=== PATIENT | female | born 1935 | race Caucasian/White ===

== ENCOUNTER 2017-12-27 21:14 | Inpatient (IN) ==
--- NOTE | 2017-12-27 21:49 | ED ---
HPI General Chief complaint: Dizziness Stated complaint: dizziness Time Seen by Provider: 12/27/17 21:17 Source: patient Mode of arrival: EMS Limitations: no limitations History of Present Illness HPI narrative: The patient is an 82 year old female who presents to the [facility] emergency department with a history of 1 AM today awakening to go to the bathroom and reportedly feeling lightheaded when she sat up. She reports she went to the bathroom and then had diarrhea associated with diaphoresis, nausea, vomiting. She reports that she had 3 other episodes that are similar to this throughout the night. She reports that the vomiting and diarrhea resolved, however she continues to feel lightheaded. She denies seeing any spinning associated with this. She reports that with the first episode she nearly passed out. She denies having any chest pain, chest pressure, or shortness of breath, however she does report having some indigestion. She reports that this is chronic. She reports that she is on Zantac and Tums for this. She denies indigestion being any worse than usual. The patient reported that she was checking her blood pressure earlier today and it was noted to be higher than usual. The patient was brought in by ambulance services and had a blood pressure of 219/110. She reports that she does take blood pressure medication and has been taking it on a regular basis. She reports that she is also on a low-dose aspirin daily. The patient reports a prior history of left-sided weakness. She reports that this is been present since 2013 when she had a blood clot surgically removed at [facility]. The patient additionally is noted to have a tremor involving bilateral upper extremities. She reports that this is chronic and been present for years and runs in her family. On review of systems otherwise, the patient denies having any known recent fevers, cough, congestion, neck pain, abdominal pain, urinary symptoms, new or worsening one-sided weakness, facial droop, difficulty with word finding ability, double vision, or change in vision. Related Data Home Medications Medication Instructions Recorded Confirmed aspirin 81 mg PO DAILY 12/27/17 12/27/17 cyanocobalamin (vitamin B-12) 1,000 mcg PO DAILY 12/27/17 12/27/17 [B-12 DOTS] glipizide 5 mg PO DAILY 12/27/17 12/27/17 lisinopril-hydrochlorothiazide 1 tab PO DAILY 12/27/17 12/27/17 metformin 1,000 mg PO BID 12/27/17 12/27/17 propranolol 40 mg PO DAILY 12/27/17 12/27/17 ranitidine HCl 300 mg PO DAILY 12/27/17 12/27/17 Allergies Allergy/AdvReac Type Severity Reaction Status Date / Time No Known Allergies Allergy Verified 12/27/17 21:23 Review of Systems ROS: all other systems reviewed are negative FORMERLY [facility], [facility] Medical History Medical History Gastritis (Acute) HTN (hypertension) (Acute) Vertigo (Acute) Left-sided weakness (Acute) Tremor (Acute) Surgical History Surgical History Hx of total hysterectomy (Acute) Social History Social History Substance History: No History of Abuse Second Hand Smoke Exposure: No Smoking Status: Never smoker How Often Do You Have a Drink Containing Alcohol: Never Recent Travel in [facility] within the Last 8 Weeks: No Recent Out of Country Travel within the Last 8 Weeks: No Immunization History Tetanus Immunization: <5 Years Exam Const General: cooperative, no acute distress and well developed Nutritional Appearance: well nourished Orientation: alert, awake and oriented x3 HENMT Head: normocephalic and atraumatic Nose: no nasal discharge and no epistaxis Mouth: moist mucous membranes Throat: posterior oropharynx normal and uvula midline Eyes Sclera: normal sclerae Pupils: PERRL Neck Neck: no meningeal signs, trachea midline and no JVD Resp Effort & Inspection: no use of accessory muscles Auscultation: clear to auscultation bilaterally Cardio Rate: regular rate Rhythm: regular rhythm Heart Sounds: no murmurs GI Inspection: non-distended Palpation: soft, no hepatosplenomegaly, no guarding, not rigid and nontender Auscultation: normal bowel sounds Back/Spine/Pelvis Back: no CVA tenderness Skin General: dry skin (warm) Neuro General: alert, awake and oriented x3 Cranial Nerves: CN's II-XI intact bilaterally Speech: speech normal Motor: no movement abnormalities noted and strength abnormal (The patient strength is 5/5 in bilateral upper extremities and the right lower extremity. The patient's left lower extremity is mildly weak compared to the left at 4/5. The patient reports having history of prior weakness in the left lower extremity related to a blood clot in 2013.) Sensory Exam: no sensory deficits noted Extrem General: normal to inspection (2+ pulses in all 4 extremities.), no calf tenderness, no clubbing, no cyanosis and no edema Psych Mood: congruent mood Affect: normal affect Judgment: judgment good Course Initial Documented Vital Signs Temperature 98.5 F 12/27/17 21:18 Pulse Rate 78 12/27/17 21:18 Respiratory Rate 18 12/27/17 21:18 Blood Pressure 226/102 H 12/27/17 21:18 Pulse Oximetry 95 12/27/17 21:18 Last Documented Vital Signs Temperature 97.8 F 12/28/17 01:51 Pulse Rate 65 12/28/17 01:51 Respiratory Rate 14 12/28/17 01:51 Blood Pressure 180/78 H 12/28/17 01:51 Pulse Oximetry 99 12/28/17 01:58 Medical Decision Making MDM Narrative Medical decision making narrative: During the course of the patient's emergency department visit, the patient's history, examination, and differential diagnosis were reviewed with the patient. The patient was placed on a water trainer with oximetry and frequent blood pressure monitoring. The patient had IV access obtained and blood work sent for analysis. A diagnostic evaluation was started regarding the patient's lightheaded sensation. Orthostatic vital signs were done and unremarkable. The patient's diagnostic evaluation is remarkable for a white count of 6.4, hemoglobin 12.3, platelets 266 with 10.9 monocytes, PT 10.1, PTT 24.5, chemistries remarkable for a BUN of 19, creatinine 1.10, glucose 169, CPK 96, troponin I was elevated at 0.13. The patient was given aspirin 324 mg p.o. x1, nitroglycerin 1 inch to the chest wall. Labetalol was administered, 10 mg IV. BNP is elevated at 201, lipase within normal limits, the patient's chest x-ray showed early or mild left infiltrate, CT scan of the brain showed no acute abnormality. The patient denies having any significant cough and her white count is normal, no reports of fever, I doubt that the patient has a pneumonia, this could be related to atelectasis on her chest x-ray. The patient will be monitored. The patient will be admitted to the hospital for near syncope with an elevated troponin, and hypertension. The patient's results were discussed with the patient, including the plan of care. I explained that further testing and/ or monitoring is indicated based on the patient's history, examination, and/ or laboratory findings. Therefore, I recommended admission for additional evaluation. The patient expressed understanding and was agreeable with this plan. The patient was admitted to the hospital in guarded condition and sent to a bed under the care of the [facility] service. Medical Screen Exam Complete: Yes Emergency Medical Condition: Yes Lab Data Result diagrams: 12/28/17 03:43 12/27/17 21:43 Lab Results 12/27/17 12/27/17 12/27/17 Range/Units 21:43 21:43 21:43 WBC 6.4 (4.0-11.0) th/mm3 RBC 4.25 (4.00-5.30) mil/mm3 Hgb 12.3 (11.6-15.3) gm/dL Hct 36.8 (35.0-46.0) % MCV 86.7 (80.0-100.0) fL MCH 29.0 (27.0-34.0) pg MCHC 33.4 (32.0-36.0) % RDW 14.7 (11.6-17.2) % Plt Count 266 (150-450) th/mm3 MPV 9.5 (7.0-11.0) fL Neut % (Auto) 65.8 (16.0-70.0) % Lymph % (Auto) 19.8 (9.0-44.0) % [place] % (Auto) 10.9 H (0.0-8.0) % Eos % (Auto) 2.3 (0.0-4.0) % Baso % (Auto) 1.2 (0.0-2.0) % Neut # (Auto) 4.2 (1.8-7.7) th/mm3 Lymph # (Auto) 1.3 (1.0-4.8) th/mm3 [place] # (Auto) 0.7 (0.0-0.9) th/mm3 Eos # (Auto) 0.2 (0.0-0.4) th/mm3 Baso # (Auto) 0.1 (0.0-0.2) th/mm3 WBC Differential . Differential Comment Auto diff final PT (9.8-11.6) sec INR Ratio APTT (23.4-31.7) sec Sodium (136-145) meq/L Potassium (3.5-5.1) meq/L Chloride (98-107) meq/L Carbon Dioxide (21.0-32.0) meq/L Anion Gap (5-15) meq/L BUN (7-18) mg/dL Creatinine (0.50-1.00) mg/dL Estimated GFR (>89) mL/min Random Glucose (74-106) mg/dL Calcium (8.5-10.1) mg/dL Magnesium (1.5-2.5) mg/dL Total Bilirubin (0.2-1.0) mg/dL AST (15-37) U/L ALT (10-53) U/L Alkaline Phosphatase (45-117) U/L Total Creatine Kinase (26-192) U/L Troponin I (0.02-0.05) ng/mL B-Natriuretic Peptide 201 H (0-100) pg/mL Total Protein (6.4-8.2) g/dL Albumin (3.4-5.0) g/dL Lipase 144 (73-393) U/L Urine Color (Yellw/Straw) Urine Clarity (Clear) Urine pH (5.0-8.5) Ur Specific [place] (1.002-1.035) Urine Protein (Neg-Trace) mg/dL Urine Glucose (UA) (Negative) mg/dL Urine Ketones (Negative) mg/dL Urine Occult Blood (Negative) Urine Nitrate (Negative) Urine Bilirubin (Negative) Urine Urobilinogen (Less than 2) mg/dL Ur Leukocyte Esterase (Negative) Urine RBC (0-3) /hpf Urine WBC (0-5) /hpf Ur Squamous Epith Cells (0-5) /hpf Urine Bacteria (None) /hpf Urine Mucus (Occasional) /lpf Micro UA Comment Ur Microscopic Review Urine Culture Comments 12/27/17 12/27/17 12/27/17 Range/Units 21:43 21:43 22:52 WBC (4.0-11.0) th/mm3 RBC (4.00-5.30) mil/mm3 Hgb (11.6-15.3) gm/dL Hct (35.0-46.0) % MCV (80.0-100.0) fL MCH (27.0-34.0) pg MCHC (32.0-36.0) % RDW (11.6-17.2) % Plt Count (150-450) th/mm3 MPV (7.0-11.0) fL Neut % (Auto) (16.0-70.0) % Lymph % (Auto) (9.0-44.0) % [place] % (Auto) (0.0-8.0) % Eos % (Auto) (0.0-4.0) % Baso % (Auto) (0.0-2.0) % Neut # (Auto) (1.8-7.7) th/mm3 Lymph # (Auto) (1.0-4.8) th/mm3 [place] # (Auto) (0.0-0.9) th/mm3 Eos # (Auto) (0.0-0.4) th/mm3 Baso # (Auto) (0.0-0.2) th/mm3 WBC Differential Differential Comment PT 10.1 (9.8-11.6) sec INR 1.0 Ratio APTT 24.5 (23.4-31.7) sec Sodium 139 (136-145) meq/L Potassium 3.5 (3.5-5.1) meq/L Chloride 101 (98-107) meq/L Carbon Dioxide 29.9 (21.0-32.0) meq/L Anion Gap 8 (5-15) meq/L BUN 19 H (7-18) mg/dL Creatinine 1.10 H (0.50-1.00) mg/dL Estimated GFR 48 L (>89) mL/min Random Glucose 169 H (74-106) mg/dL Calcium 9.0 (8.5-10.1) mg/dL Magnesium 1.5 (1.5-2.5) mg/dL Total Bilirubin 0.4 (0.2-1.0) mg/dL AST 16 (15-37) U/L ALT 17 (10-53) U/L Alkaline Phosphatase 87 (45-117) U/L Total Creatine Kinase 96 (26-192) U/L Troponin I 0.13 H (0.02-0.05) ng/mL B-Natriuretic Peptide (0-100) pg/mL Total Protein 7.6 (6.4-8.2) g/dL Albumin 3.8 (3.4-5.0) g/dL Lipase (73-393) U/L Urine Color Yellow (Yellw/Straw) Urine Clarity Clear (Clear) Urine pH 6.0 (5.0-8.5) Ur Specific [place] 1.011 (1.002-1.035) Urine Protein Negative (Neg-Trace) mg/dL Urine Glucose (UA) Negative (Negative) mg/dL Urine Ketones Negative (Negative) mg/dL Urine Occult Blood Negative (Negative) Urine Nitrate Negative (Negative) Urine Bilirubin Negative (Negative) Urine Urobilinogen Less than 2 (Less than 2) mg/dL Ur Leukocyte Esterase Moderate H (Negative) Urine RBC 1 (0-3) /hpf Urine WBC 11 H (0-5) /hpf Ur Squamous Epith Cells 3 (0-5) /hpf Urine Bacteria Rare H (None) /hpf Urine Mucus Few H (Occasional) /lpf Micro UA Comment Culture not ind Ur Microscopic Review Not Reportable Urine Culture Comments Culture not ind 12/28/17 Range/Units 03:43 WBC 6.0 (4.0-11.0) th/mm3 RBC 3.77 L (4.00-5.30) mil/mm3 Hgb 11.0 L (11.6-15.3) gm/dL Hct 32.7 L (35.0-46.0) % MCV 86.8 (80.0-100.0) fL MCH 29.2 (27.0-34.0) pg MCHC 33.6 (32.0-36.0) % RDW 14.3 (11.6-17.2) % Plt Count 240 (150-450) th/mm3 MPV 9.4 (7.0-11.0) fL Neut % (Auto) 63.1 (16.0-70.0) % Lymph % (Auto) 24.7 (9.0-44.0) % [place] % (Auto) 9.3 H (0.0-8.0) % Eos % (Auto) 1.6 (0.0-4.0) % Baso % (Auto) 1.3 (0.0-2.0) % Neut # (Auto) 3.8 (1.8-7.7) th/mm3 Lymph # (Auto) 1.5 (1.0-4.8) th/mm3 [place] # (Auto) 0.6 (0.0-0.9) th/mm3 Eos # (Auto) 0.1 (0.0-0.4) th/mm3 Baso # (Auto) 0.1 (0.0-0.2) th/mm3 WBC Differential . Differential Comment Auto diff final PT (9.8-11.6) sec INR Ratio APTT (23.4-31.7) sec Sodium (136-145) meq/L Potassium (3.5-5.1) meq/L Chloride (98-107) meq/L Carbon Dioxide (21.0-32.0) meq/L Anion Gap (5-15) meq/L BUN (7-18) mg/dL Creatinine (0.50-1.00) mg/dL Estimated GFR (>89) mL/min Random Glucose (74-106) mg/dL Calcium (8.5-10.1) mg/dL Magnesium (1.5-2.5) mg/dL Total Bilirubin (0.2-1.0) mg/dL AST (15-37) U/L ALT (10-53) U/L Alkaline Phosphatase (45-117) U/L Total Creatine Kinase (26-192) U/L Troponin I (0.02-0.05) ng/mL B-Natriuretic Peptide (0-100) pg/mL Total Protein (6.4-8.2) g/dL Albumin (3.4-5.0) g/dL Lipase (73-393) U/L Urine Color (Yellw/Straw) Urine Clarity (Clear) Urine pH (5.0-8.5) Ur Specific [place] (1.002-1.035) Urine Protein (Neg-Trace) mg/dL Urine Glucose (UA) (Negative) mg/dL Urine Ketones (Negative) mg/dL Urine Occult Blood (Negative) Urine Nitrate (Negative) Urine Bilirubin (Negative) Urine Urobilinogen (Less than 2) mg/dL Ur Leukocyte Esterase (Negative) Urine RBC (0-3) /hpf Urine WBC (0-5) /hpf Ur Squamous Epith Cells (0-5) /hpf Urine Bacteria (None) /hpf Urine Mucus (Occasional) /lpf Micro UA Comment Ur Microscopic Review Urine Culture Comments Imaging Data Radiologist's impression: Head CT 12/27/17 21:40 CONCLUSION: Negative noncontrast head CT. . Chest X-Ray 12/27/17 21:41 CONCLUSION: Early or mild left base pneumonia suspected. ECG Data Attestation: I personally reviewed and interpreted this ECG as follows: Interpretation: The patient had a EKG done on arrival. The patient's EKG shows a sinus rhythm heart rate of 80, seconds. No acute ST segment elevation is noted. Discharge Plan Discharge Disposition Patient Disposition: 30 Still Patient Discharge Details Diagnosis: Near syncope, Elevated troponin, Hypertension Physicians Team ED Provider: Bibiana Hamilton Primary Care Provider: Nathanael Gonzalez Attending Provider: Hamilton Manzanares Discharge Interventions Interventions: ED Discharge Assessment Last Done: 12/28/17 01:25 Status ED Status: Left Department Discharge Information Discharge Date/Time: 12/28/17 01:26
[2017-12-27 22:00] LABS: Baso # (Auto) 0.1 th/mm3 (0.0-0.2); Baso % (Auto) 1.2 % (0.0-2.0); Eos # (Auto) 0.2 th/mm3 (0.0-0.4); Eos % (Auto) 2.3 % (0.0-4.0); Hematocrit 36.8 % (35.0-46.0); Hemoglobin 12.3 gm/dL (11.6-15.3); Lymph # (Auto) 1.3 th/mm3 (1.0-4.8); Lymph % (Auto) 19.8 % (9.0-44.0); Mean Corpuscular HGB Conc 33.4 % (32.0-36.0); Mean Corpuscular Volume 86.7 fL (80.0-100.0); Mean Platelet Volume 9.5 fL (7.0-11.0); Mono # (Auto) 0.7 th/mm3 (0.0-0.9); Mono % (Auto) 10.9 % (0.0-8.0); Neut # (Auto) 4.2 th/mm3 (1.8-7.7); Neut % (Auto) 65.8 % (16.0-70.0); Platelet Count 266 th/mm3 (150-450); Red Blood Count 4.25 mil/mm3 (4.00-5.30); Red Cell Distribution Width 14.7 % (11.6-17.2); White Blood Count 6.4 th/mm3 (4.0-11.0)
[2017-12-27 22:05] LABS: Activated Partial Thrombo Time 24.5 sec (23.4-31.7); Prothrombin Time 10.1 sec (9.8-11.6)
[2017-12-27 22:22] LABS: Albumin 3.8 g/dL (3.4-5.0); Anion Gap 8 meq/L (5-15); Aspartate Aminotransferase 16 U/L (15-37); Blood Urea Nitrogen 19 mg/dL (7-18); Carbon Dioxide 29.9 meq/L (21.0-32.0); Chloride 101 meq/L (98-107); Glomerular Filtration Rate 48 mL/min (>89); Glucose,Random 169 mg/dL (74-106); Magnesium 1.5 mg/dL (1.5-2.5); Potassium 3.5 meq/L (3.5-5.1); Sodium 139 meq/L (136-145)
[2017-12-27 22:23] LABS: Alanine Aminotransferase 17 U/L (10-53)
[2017-12-27 22:26] LABS: Alkaline Phosphatase 87 U/L (45-117); Total Protein 7.6 g/dL (6.4-8.2); Troponin I 0.13 ng/mL (0.02-0.05)
--- NOTE | 2017-12-27 22:26 | XR ---
EXAM DATE: 12/27/2017 10:17 PM EST AGE/SEX: 82 years / Female INDICATIONS: Lightheaded and dizziness. CLINICAL DATA: This is the patient's initial encounter. Patient reports that signs and symptoms have been present for 1 day and indicates a pain score of 0/10. MEDICAL/SURGICAL HISTORY: Hypertension. None. COMPARISON: No prior exams available for comparison. FINDINGS: Very mild patchy infiltrate seen in the left mid and lower lung. No dense consolidation. No pleural e ffusion or pneumothorax. Heart size within normal limits. CONCLUSION: Early or mild left base pneumonia suspected. Electronically signed by: Waldemar Carreon MD 12/27/2017 10:25 PM EST
--- NOTE | 2017-12-27 22:42 | CT ---
EXAM DATE: 12/27/2017 10:34 PM EST AGE/SEX: 82 years / Female INDICATIONS: Dizziness and lightheaded. CLINICAL DATA: This is the patient's initial encounter. Patient reports that signs and symptoms have been present for 1 day and indicates a pain score of 0/10. MEDICAL/SURGICAL HISTORY: Hypertension. Hysterectomy. RADIATION DOSE: 35.14 CTDI (mGy) COMPARISON: No prior exams available for comparison. TECHNIQUE: CT of the head without contrast. Using automated exposure control and adjustment of the mA and/or kV according to patient size, radiation dose was kept as low as reasonably achievable to ob tain optimal diagnostic quality images. DICOM format image data is available electronically for revi ew and comparison. FINDINGS: Cerebrum: The ventricles are normal for age. No evidence of midline shift, mass lesion, hemorrhage or acute infarction. No extraaxial fluid collections are seen. Posterior Fossa: The cerebellum and brainstem are intact. The 4th ventricle is midline. The cerebe llopontine angle is unremarkable. Extracranial: The visualized portion of the orbits is intact. Skull: The calvaria is intact. No evidence of skull fracture. CONCLUSION: Negative noncontrast head CT. . Electronically signed by: Waldemar Carreon MD 12/27/2017 10:40 PM EST
[2017-12-27 22:50] LABS: Creatine Kinase 96 U/L (26-192)
[2017-12-27] MEDS ORDERED: Labetalol HCl Inj 100 MG/20 ML Vial IV.PUSH ONE (23:14)
[2017-12-27 23:27] LABS: Bacteria,Urine Rare /hpf; Bilirubin,Urine Negative (Negative); Clarity,Urine Clear (Clear); Color,Urine Yellow (Yellw/Straw); Glucose,Urine (UA) Negative (Negative); Leukocyte Esterase,Urine Moderate (Negative); Mucus,Urine Few /lpf (Occasional); Nitrite,Urine Negative (Negative); Specific Gravity,Urine 1.011 (1.002-1.035); Squamous Epithelial Cell,Urine 3 /hpf (0-5)
[2017-12-27] MEDS ORDERED: Bisacodyl 10 MG Supp RECTAL PRN (23:31)
[2017-12-27] MEDS ORDERED: Dextrose 50% in Water 50 ML Vial IV.PUSH PRN (23:37)
[2017-12-28] MEDS: Sod Chloride 0.9% Inj 1,000 ML IV.CONT SCH ×2 (00:16→18:51)
[2017-12-28] MEDS ORDERED: Pantoprazole Inj 40 MG Vial IV.PUSH ONE (03:41)
[2017-12-28 04:36] LABS: Baso # (Auto) 0.1 th/mm3 (0.0-0.2); Baso % (Auto) 1.3 % (0.0-2.0); Eos # (Auto) 0.1 th/mm3 (0.0-0.4); Eos % (Auto) 1.6 % (0.0-4.0); Hematocrit 32.7 % (35.0-46.0); Lymph # (Auto) 1.5 th/mm3 (1.0-4.8); Lymph % (Auto) 24.7 % (9.0-44.0); Mean Corpuscular HGB Conc 33.6 % (32.0-36.0); Mean Corpuscular Hemoglobin 29.2 pg (27.0-34.0); Mean Corpuscular Volume 86.8 fL (80.0-100.0); Mean Platelet Volume 9.4 fL (7.0-11.0); Mono # (Auto) 0.6 th/mm3 (0.0-0.9); Mono % (Auto) 9.3 % (0.0-8.0); Neut # (Auto) 3.8 th/mm3 (1.8-7.7); Neut % (Auto) 63.1 % (16.0-70.0); Platelet Count 240 th/mm3 (150-450); Red Blood Count 3.77 mil/mm3 (4.00-5.30); Red Cell Distribution Width 14.3 % (11.6-17.2)
[2017-12-28 04:58] LABS: Alanine Aminotransferase 15 U/L (10-53); Albumin 3.3 g/dL (3.4-5.0); Anion Gap 10 meq/L (5-15); Aspartate Aminotransferase 14 U/L (15-37); Blood Urea Nitrogen 17 mg/dL (7-18); Calcium 8.7 mg/dL (8.5-10.1); Carbon Dioxide 28.6 meq/L (21.0-32.0); Chloride 104 meq/L (98-107); Glomerular Filtration Rate 54 mL/min (>89); Glucose,Random 150 mg/dL (74-106); Potassium 3.3 meq/L (3.5-5.1); Sodium 143 meq/L (136-145)
[2017-12-28 05:02] LABS: Alkaline Phosphatase 73 U/L (45-117); Total Protein 6.5 g/dL (6.4-8.2); Troponin I 0.14 ng/mL (0.02-0.05)
--- NOTE | 2017-12-28 05:37 | P.HPIM ---
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 She reports nausea, vomiting of clear emesis, nonbloody diarrhea, sweating over the past day. She also reports generalized weakness upon standing, worse on the left than on the right (note that patient reports some baseline left sided weakness). She denies any recent changes in medications. Inpatient Certification: I certify that the inpatient services were ordered in accordance with Medicare regulations governing the order. This includes certification that hospital inpatient services are reasonable and necessary and in the case of services not specified as inpatient-only under 42 CFR 419.22(n), that they are appropriately provided as inpatient services in accordance to with the 2-midnight benchmark under 43 CFR 412.3(e) Estimated Total Length of Stay (Days): 2 Plans for Post Hospital Care: Not yet determined Review of Systems All other systems reviewed negative except as stated in HPI PMFSH - History History Provided By: Patient - Medical History Medical History: Medical History (Last Reviewed 12/28/17 @ 05:30 by Hamilton Manzanares MD) Gastritis HTN (hypertension) Vertigo Left-sided weakness Tremor - Surgical History Surgical History: Surgical History (Last Reviewed 12/28/17 @ 05:30 by Hamilton Manzanares MD) Hx of total hysterectomy - Family History Family History: Family History (Last Updated 12/28/17 @ 05:33 by Hamilton Manzanares MD) Father Colon cancer Mother Stroke - Tobacco History Second Hand Smoke Exposure: No Smoking Status: Never smoker - Alcohol History How Often Do You Have a Drink Containing Alcohol: Never - Substance Use History Substance History: No History of Abuse - Travel History Recent Travel in the [place] Within the Last 8 Weeks: No Recent Travel Out of the Country Within the Last 8 Weeks: No - Immunization History Tetanus Immunization: <5 Years Medications and Allergies Active Medications: Active Medications Al Hydroxide/Mg Hydroxide (Milk Of Magnannika Liq) 30 ml PO Q12H PRN PRN Reason: Mild Constipation Aspirin (Aspirin Chew) 81 mg PO DAILY POPEYE Bisacodyl (Dulcolax Supp) 10 mg RECTAL DAILY PRN PRN Reason: SEVERE CONSITIPATION Calcium Carbonate (Tums Chew) 500 mg CHEW Q2H PRN PRN Reason: REFLUX Last Admin: 12/28/17 04:00 Dose: 500 mg Dextrose (D50w Vial) 50 ml IV.PUSH UNSCH PRN PRN Reason: PER HYPOGLYCEMIA PROTOCOL Enalaprilat (Vasotec Inj) 1.25 mg IV.PUSH Q6H PRN PRN Reason: SBP>180, DBP>110 Last Admin: 12/28/17 00:45 Dose: 1.25 mg Famotidine (Pepcid) 40 mg PO DAILY POPEYE Glucagon (Glucagon Inj) 1 mg OTHER PRN PRN PRN Reason: for Hypoglycemia Protocol Sodium Chloride (Ns Inj) 1,000 mls @ 50 mls/hr IV.CONT .Q20H POPEYE Last Admin: 12/28/17 00:16 Dose: 50 mls/hr Insulin Aspart (Novolog Insulin Correctional Sugar Inj) 0 unit SQ ACHS POPEYE; Protocol Lactulose (Lactulose Liq) 30 ml PO DAILY PRN PRN Reason: SEVERE CONSITIPATION Nitroglycerin (Nitro-Bid 2% Oint) 1 inch TOPICAL Q6HR POPEYE Propranolol HCl (Inderal) 40 mg PO DAILY [facility] Sennosides (Senokot) 17.2 mg PO Q12H PRN PRN Reason: Moderate Constipation Sodium Chloride (Ns Flush) 2 ml IV.FLUSH UNSCH PRN PRN Reason: FLUSH AFTER USING IV ACCESS Allergies Allergy/AdvReac Type Severity Reaction Status Date / Time No Known Allergies Allergy Verified 12/27/17 21:23 Home Medications Medication Instructions Recorded Confirmed Type aspirin 81 mg PO DAILY 12/27/17 12/27/17 History cyanocobalamin (vitamin B-12) 1,000 mcg PO DAILY 12/27/17 12/27/17 History [B-12 DOTS] glipizide 5 mg PO DAILY 12/27/17 12/27/17 History lisinopril-hydrochlorothiazide 1 tab PO DAILY 12/27/17 12/27/17 History metformin 1,000 mg PO BID 12/27/17 12/27/17 History propranolol 40 mg PO DAILY 12/27/17 12/27/17 History ranitidine HCl 300 mg PO DAILY 12/27/17 12/27/17 History Exam Vital signs: Vital Signs 12/27/17 21:18 12/27/17 21:48 12/28/17 00:00 Temperature 98.5 F Pulse Rate 78 87 69 Respiratory Rate 18 18 Blood Pressure 226/102 H 188/96 H Pulse Oximetry 95 96 98 12/28/17 00:44 12/28/17 01:51 12/28/17 01:58 Temperature 97.8 F Pulse Rate 70 65 Respiratory Rate 18 14 Blood Pressure 150/68 H 180/78 H Pulse Oximetry 98 99 99 Intake & Output 12/27/17 12/27/17 12/28/17 06:59 18:59 06:59 Weight 74.843 kg Narrative: GENERAL: Patient lying in bed. Appears comfortable. Alert and oriented x3. SKIN: Warm and dry. HEAD: Atraumatic. Normocephalic. EYES: Pupils equal and round. No scleral icterus. No injection or drainage. ENT: No nasal bleeding or discharge. Mucous membranes pink and moist. NECK: Trachea midline. No JVD. Patient has right-sided carotid bruit. CARDIOVASCULAR: Regular rate and rhythm. RESPIRATORY: No accessory muscle use. Clear to auscultation. Breath sounds equal bilaterally. GASTROINTESTINAL: Abdomen soft, non-tender, nondistended. Hepatic and splenic margins not palpable. MUSCULOSKELETAL: Extremities without clubbing, cyanosis, or edema. No obvious deformities. NEUROLOGICAL: Awake and alert. No obvious cranial nerve deficits. Motor grossly within normal limits. Normal speech. Patient does have very slight weakness on the left compared to the right, 4 out of 5 strength on the left, 5 out of 5 on the right. Slight tremor on the left upper extremity. Which patient reports is at baseline. PSYCHIATRIC: Appropriate mood and affect; insight and judgment normal. Results - Labs CBC & Chem 7: 12/28/17 03:43 12/28/17 03:43 Labs: Short CBC 12/27/17 12/28/17 Range/Units 21:43 03:43 WBC 6.4 6.0 (4.0-11.0) th/mm3 Hgb 12.3 11.0 L (11.6-15.3) gm/dL Hct 36.8 32.7 L (35.0-46.0) % Plt Count 266 240 (150-450) th/mm3 [facility] 12/27/17 12/28/17 21:43 03:43 Sodium 139 143 Potassium 3.5 3.3 L Chloride 101 104 Carbon Dioxide 29.9 28.6 BUN 19 H 17 Creatinine 1.10 H 0.99 Calcium 9.0 8.7 Cardiac Enzymes 12/27/17 12/28/17 Range/Units 21:43 03:43 Total Creatine Kinase 96 (26-192) U/L Troponin I 0.13 H 0.14 H (0.02-0.05) ng/mL Liver Function 12/27/17 12/28/17 Range/Units 21:43 03:43 Total Bilirubin 0.4 0.4 (0.2-1.0) mg/dL AST 16 14 L (15-37) U/L ALT 17 15 (10-53) U/L Alkaline Phosphatase 87 73 (45-117) U/L Albumin 3.8 3.3 L (3.4-5.0) g/dL Urine 12/27/17 Range/Units 22:52 Urine Color Yellow (Yellw/Straw) Urine Clarity Clear (Clear) Urine pH 6.0 (5.0-8.5) Ur Specific Buchanan 1.011 (1.002-1.035) Urine Protein Negative (Neg-Trace) mg/dL Urine Glucose (UA) Negative (Negative) mg/dL - Imaging Impressions Head CT 12/27/17 21:40 CONCLUSION: Negative noncontrast head CT. . Chest X-Ray 12/27/17 21:41 CONCLUSION: Early or mild left base pneumonia suspected. Caprini VTE Risk Assessment Caprini VTE Risk Assessment: Moderate/High Risk (score >= 2) Caprini Risk Assessment Model: Point Value = 1 Point Value = 2 Point Value = 3 Point Value = 5 Age 41-60 Minor surgery BMI > 25 kg/m2 Swollen legs Varicose veins or History of unexplained or recurrent spontaneous Oral contraceptives or hormone replacement Sepsis (< 1 month) Serious lung disease, including pneumonia (< 1 month) Abnormal pulmonary function Acute myocardial infarction Congestive heart failure (< 1 month) History of inflammatory bowel disease Medical patient at bed rest Age 61-74 Arthroscopic surgery Major open surgery (> 45 min) Laparoscopic surgery (> 45 min) Malignancy Confined to bed (> 72 hours) Immobilizing plaster cast Central venous access Age >= 75 History of VTE Family history of VTE Factor V Leiden Prothrombin [id number] Lupus anticoagulant Anticardiolipin antibodies Elevated serum homocysteine Heparin-induced thrombocytopenia Other congenital or acquired thrombophilia Stroke (< 1 month) Elective arthroplasty Hip, pelvis, or leg fracture Acute spinal cord injury (< 1 month) Prophylaxis Regimen: Total Risk Factor Score Risk Level Prophylaxis Regimen 0-1 Low Early ambulation 2 Moderate Order ONE of the following: *Sequential Compression Device (SCD) *Heparin 5000 units SQ BID 3-4 Higher Order ONE of the following medications: *Heparin 5000 units SQ TID *Enoxaparin/Lovenox 40 mg SQ daily (WT < 150 kg, CrCl > 30 mL/min) *Enoxaparin/Lovenox 30 mg SQ daily (WT < 150 kg, CrCl > 10-29 mL/min) *Enoxaparin/Lovenox 30 mg SQ BID (WT < 150 kg, CrCl > 30 mL/min) AND/OR *Sequential Compression Device (SCD) 5 or more Highest Order ONE of the following medications: *Heparin 5000 units SQ TID (Preferred with Epidurals) *Enoxaparin/Lovenox 40 mg SQ daily (WT < 150 kg, CrCl > 30 mL/min) *Enoxaparin/Lovenox 30 mg SQ daily (WT < 150 kg, CrCl > 10-29 mL/min) *Enoxaparin/Lovenox 30 mg SQ BID (WT < 150 kg, CrCl > 30 mL/min) AND *Sequential Compression Device (SCD) Assessment and Plan - Plan //Possible non-ST elevation AK With atypical complaints of nausea and vomiting, troponin elevation up to 0.14. EKG with no acute changes. Chest pain-free. Cardiology consulted. Continue to monitor EKGs and troponins. //Nausea, vomiting -Much improved currently. Multifactorial. Could be secondary to lightheadedness versus atypical chest pain versus gastritis. Continue on PPI, antiemetics. //Lightheadedness //Left-sided weakness. Acute on chronic //Right sided bruit on exam CT brain with no acute findings Follow-up carotid ultrasound. Neurology consulted. Permissive hypertension for now. //Accelerated hypertension. Systolic blood pressuressecondary to lightheadedness with left carotid bruit will allow permissive hypertension for now. //Diabetes mellitus. Chronic. Insulin sliding scale and diabetic diet when diet restarted. //History of gastric ulcer. //GERD Chronic. IV PPI. Discussed Condition With: Patient, nurse, ED physician.
[2017-12-28] MEDS ORDERED: Sodium Chloride 0.9% 2 ML Flush PRN IV.FLUSH (05:58)
[2017-12-28] MEDS ORDERED: Potassium Chlor 20 mEq Premix 20 MEQ/100 ML PIGGYBACK IV.SIG ONE (06:00)
[2017-12-28] MEDS: Famotidine 20 MG Tablet PO SCH (08:00)
[2017-12-28] MEDS: Propranolol 40 MG Tablet PO SCH (08:00)
[2017-12-28] MEDS: Insulin NovoLOG Aspart Correctional Sugar Inj SQ SCH ×4 (08:01→21:57)
[2017-12-28] MEDS: Sodium Chloride 0.9% 2 ML Flush BID IV.FLUSH SCH ×2 (08:01→21:57)
--- NOTE | 2017-12-28 09:06 | US ---
EXAM DATE: 12/28/2017 9:01 AM EST AGE/SEX: 82 years / Female INDICATIONS: Syncope. CLINICAL DATA: This is the patient's initial encounter. Patient reports that signs and symptoms have been present for 1 day and indicates a pain score of 0/10. MEDICAL/SURGICAL HISTORY: Hypertension. Gastritis. Left sided weakness. Tremors. Vertigo. Hyst erectomy. COMPARISON: No prior exams available for comparison. VELOCITY PARAMETERS: ICA/CCA Ratio: Right 0.7 , Left 1.2 ICA: Right 81.6 cm/sec, Left 98.3 cm/sec CCA: Right 109.3 cm/sec, Left 79.1 cm/sec ECA: Right 90.3 cm/sec, Left 109.7 cm/sec Vertebral: Right 69.9 cm/sec antegrade, Left 48.2 cm/sec antegrade FINDINGS: Right Carotid: Mild arteriosclerotic plaque is visualized.The waveforms are within normal limits. Left Carotid: Mild arteriosclerotic plaque is visualized. The waveforms are within normal limits. Other: None. CONCLUSION: No hemodynamically significant stenosis in either carotid artery Electronically signed by: Franck Suarez MD 12/28/2017 9:05 AM EST
--- NOTE | 2017-12-28 17:12 | ECHRPT ---
Indication: syncope CONCLUSIONS Normal left ventricular size. Wall thickness is normal. The left ventricular systolic function is normal with an estimated ejection fraction in the range of 60-65%. Tdohe-yh-ahqe mitral valve regurgitation. There is mild tricuspid valve regurgitation. The estimated pulmonary arterial pressure is 38 mmHg. BP: / HR: Rhythm: MEASUREMENTS (Male / Female) Normal Values Technical Quality: 2D ECHO LV Diastolic Diameter PLAX 4.5 cm 4.2 - 5.9 / 3.9 - 5.3 cm LV Systolic Diameter PLAX 3.5 cm IVS Diastolic Thickness 1.1 cm 0.6 - 1.0 / 0.6 - 0.9 cm LVPW Diastolic Thickness 1.2 cm 0.6 - 1.0 / 0.6 - 0.9 cm LV Relative Wall Thickness 0.5 RV Internal Dim ED PLAX 3.5 cm LVOT Diameter 1.6 cm Aortic Root Diameter 2.6 cm LA Systolic Diameter LX 3.2 cm 3.0 - 4.0 / 2.7 - 3.8 cm LV Ejection Fraction MOD 4C 64.4 % LV Ejection Fraction 4C AL 67.0 % M-MODE Aortic Root Diameter MM 2.4 cm LA Systolic Diameter MM 3.9 cm LA Ao Ratio MM 1.6 AV Cusp Separation MM 1.9 cm DOPPLER AV Peak Velocity 185.0 cm/s AV Peak Gradient 13.7 mmHg LVOT Peak Velocity 120.0 cm/s LVOT Peak Gradient 5.8 mmHg AV Area Cont Eq pk 1.3 cm Mitral E Point Velocity 92.8 cm/s Mitral A Point Velocity 97.2 cm/s Mitral E to A Ratio 1.0 LV E' Lateral Velocity 7.7 cm/s Mitral E to LV E' Lateral Ratio 12.1 LV E' Septal Velocity 9.4 cm/s Mitral E to LV E' Septal Ratio 9.9 TR Peak Velocity 262.0 cm/s TR Peak Gradient 27.5 mmHg Right Atrial Pressure 10.0 mmHg Pulmonary Artery Systolic Pressu 37.5 mmHg Right Ventricular Systolic Press 37.5 mmHg PV Peak Velocity 103.0 cm/s PV Peak Gradient 4.2 mmHg FINDINGS LEFT VENTRICLE Normal left ventricular size. Wall thickness is normal. The left ventricular systolic function is normal with an estimated ejection fraction in the range of 60-65%. RIGHT VENTRICLE Normal right ventricular size and systolic function. LEFT ATRIUM The left atrial size is normal. RIGHT ATRIUM The right atrial size is normal. ATRIAL SEPTUM Normal atrial septal thickness without atrial level shunting by limited color doppler interrogation. AORTA The aortic root and proximal ascending aorta are normal in size on limited imaging. MITRAL VALVE Pralu-pe-bjmp mitral valve regurgitation. AORTIC VALVE Trileaflet aortic valve. No aortic valve stenosis or regurgitation. TRICUSPID VALVE There is mild tricuspid valve regurgitation. The estimated pulmonary arterial pressure is 38 mmHg. PULMONARY VALVE No pulmonary valve regurgitation or stenosis. VESSELS The inferior vena cava is normal in size. PERICARDIUM No pericardial effusion. Houston Ervin MD, FACC, [facility] [place] (Electronically Signed) Final Date:28 December 2017 17:12
--- NOTE | 2017-12-28 18:08 | MB ---
cc: Daniel Ferrera MD, PhD DATE: 12/28/2017 REASON FOR CONSULTATION: Weakness. HISTORY OF PRESENT ILLNESS: Ms. Ruth she is an 82-year-old woman who developed diarrhea and diaphoresis yesterday. She was very dizzy as well as lightheaded. Every time she stood up, she felt as though she would passed out. She had a sense of vertigo as well, today doing much better. She denies vertigo. Denies any weakness, but feels that her strength is improving. She had no focal deficits. PAST MEDICAL HISTORY: States she has some type of "blood clot to the spine" in the cervical area requiring surgery, which left her with left-sided weakness from which she did recover, peptic ulcer disease, hypertension, GERD, tremor. MEDICATIONS: 1. Aspirin. 2. Dulcolax. 3. Pepcid. 4. Lactulose. 5. Protonix. 6. Inderal 40 mg daily. 7. Senokot. NEUROLOGIC EXAMINATION: VITAL SIGNS: Blood pressure is 174/79, pulse 74, respirations 18, temperature 98 degrees. NEUROLOGIC: Higher cortical functions are normal. Cranial nerves intact. Motor exam: She had 5/5 strength of all groups in the upper and lower extremities. There is no drift. Fine motor skills normal. Reflexes are symmetric. IMAGING STUDIES: CT scan of the brain is normal. Carotid ultrasound: No significant carotid stenosis. LABORATORY DATA: White count is 6400, hemoglobin 12.3, hematocrit 36%, platelet count 266,000. PT 10, INR 1, aPTT 24.5. Sodium is 139, potassium 3.5, chloride 101, CO2 of 29.9, BUN is 19, creatinine 1.1, GFR 48, glucose 169, AST 16, ALT 17. IMPRESSION: Presyncope, probably related to dehydration and orthostatic hypotension. RECOMMENDATIONS: Check orthostatic blood pressure. If possible obtain an MRI of the brain as well, rule out remote chance of stroke. Daniel Ferrera MD, PhD DAVIAN/dayna , 04:44 PM , 04:53 PM
[2017-12-28] MEDS ORDERED: Gadobutrol PF 7.5 MMOL/7.5 ML Vial (for RAD) IV.SIG ONE (18:31)
--- NOTE | 2017-12-28 18:38 | MR ---
EXAM DATE: 12/28/2017 6:29 PM EST AGE/SEX: 82 years / Female INDICATIONS: Left sided weakness. CLINICAL DATA: This is the patient's initial encounter. Patient reports that signs and symptoms have been present for 2 days and indicates a pain score of 0/10. MEDICAL/SURGICAL HISTORY: Diabetes mellitus type II. Hypertension. Hysterectomy. Femur surgery . COMPARISON: [facility] [place], [place] HEAD W/O CONTRAST, 12/27/2017. . TECHNIQUE: Multiplanar, multisequence examination of the brain was performed without and with 7.5 ml Gadavist (gadobutrol) contrast as a single exam dose. FINDINGS: Cerebrum: The ventricles are normal for age. No evidence of midline shift, mass lesion, hemorrhage or acute infarction. No extraaxial fluid collections are seen. The pituitary gland and suprasellar cistern are normal in configuration. White Matter: Extremely mild scattered chronic FLAIR signal abnormality in the white matter of both cerebral hemispheres. Posterior Fossa: The cerebellum and brainstem are intact. The 4th ventricle is midline. The cerebel lopontine angle is unremarkable. The cerebellar tonsils are normal in position. Diffusion Imaging: No focal areas of restricted diffusion are seen. No evidence of acute infarction . Extracranial: The visualized portions of the orbits and paranasal sinuses are unremarkable. Post Contrast: No abnormal areas of parenchymal or dural enhancement. No evidence of blood-brain ba rrier breakdown. CONCLUSION: Noncontrast MRI of the brain is within normal limits for a patient this age. No bleed, i nfarct or other acute abnormality. Electronically signed by: Waldemar Carreon MD 12/28/2017 6:37 PM EST
--- NOTE | 2017-12-28 21:14 | ECG ---
Date Performed: 12/27/2017 Time Performed: 21:21:16 PTAGE: 82 years EKG: Sinus rhythm NORMAL ECG NO PREVIOUS TRACING DOCTOR: Amado Phillips Interpretating Date/Time 12/28/2017 21:12:44
--- NOTE | 2017-12-29 01:38 | MB ---
cc: Pofririo Dias DO DATE: 12/28/2017 REASON FOR CONSULTATION: Elevated troponin, hypertensive urgency. HISTORY OF PRESENT ILLNESS: Tamia Ruth is a pleasant 82-year-old female who presented to [facility] Emergency Room due to left-sided weakness upon standing. She states that she started noticing that she was not feeling well and every time she stood up, she was having trouble with balance. She felt like the left side of her arm and leg were weak. She denies an current chest pain or shortness of breath. During her workup, she was found to have a minimally elevated troponin, which is overall flat. On arrival, she was noted to have a blood pressure of 226/102. PAST MEDICAL HISTORY: 1. Gastritis. 2. Hypertension. 3. Vertigo. 4. Chronic left-sided weakness. 5. Tremor. PAST SURGICAL HISTORY: Total hysterectomy. ALLERGIES: NO KNOWN DRUG ALLERGIES. MEDICATIONS: 1. Ranitidine 300 mg daily. 2. Aspirin 81 mg daily. 3. Propranolol 40 mg daily. 4. Metformin 1000 mg b.i.d. 5. Lisinopril/hydrochlorothiazide 12/04-02/24 daily. 6. Glipizide 5 mg daily. FAMILY HISTORY: Denies premature coronary artery disease or sudden cardiac within the family. SOCIAL HISTORY: Denies tobacco, alcohol or drug abuse. REVIEW OF SYSTEMS: Fourteen systems were reviewed including osteopathic. Pertinent positives and negatives above, otherwise negative. PHYSICAL EXAMINATION: VITAL SIGNS: Temperature 97.9, heart rate 68, blood pressure 186/86, respirations 16, pulse oximetry 97% on room air. GENERAL: The patient appears well, in no acute distress. Alert, awake and oriented x3. HEENT: Extraocular muscles intact. Mucous membranes moist. NECK: Supple. No JVD at 45 degrees. No carotid bruits heard bilaterally. Carotid upstroke is brisk in nature. HEART: Regular rate and rhythm. Positive first and second heart sounds with a 1/6 holosystolic murmur noted at the apex. LUNGS: Clear to auscultation bilaterally. No wheezes, rales or rhonchi. ABDOMEN: Soft, nontender, nondistended. No organomegaly noted. EXTREMITIES: Show no clubbing, cyanosis or edema. Femoral and distal pulses are intact bilaterally. NEUROLOGIC: No focal deficits. SKIN: Warm, dry and intact. OSTEOPATHIC: No kyphoscoliosis, lordosis or paraspinal tender points. LABORATORY DATA: Hemoglobin 11.2, hematocrit 32.7, platelets 240. Potassium 3.3, BUN 17, creatinine 0.99, troponin flat at 0.14. Electrocardiogram (12/27/2017 at 2121 hours): Sinus rhythm. No acute ST-T wave changes. IMPRESSION: 1. Minimally elevated troponin. 2. Hypertensive urgency with a blood pressure of 226/102 on arrival. 3. History of hypertension. 4. History of left-sided weakness. 5. Tremor. RECOMMENDATIONS: 1. Ms. Ruth presented with hypertensive urgency with a blood pressure of 226/102. 2. She will need further blood pressure control and we will plan on adding Norvasc at this time. 3. We will check a 2-D echo to look at her overall left ventricular function, cardiac structure and possible valvulopathies. 4. She does have a minimally elevated troponin, but this appears overall flat in nature. She has no signs or symptoms of acute coronary syndrome at this time. 5. We did discuss consideration of ischemic evaluation. For now, she would like to hold off on this at all costs if possible. We will plan on discharge, having her followup with me in the office and at that time she will further consider this. 6. Her dizziness and weakness upon standing is most likely orthostatic hypotension and we will continue to follow from that standpoint to determine if any other causes. 8. Further recommendations will be made based on the hospital course. Thank you for allowing me to see Tamia Ruth. If there are any questions, please do not hesitate to call. DO ANGEL Sen/chucky/marcelino , 12:00 AM , 12:10 AM
[2017-12-29] MEDS ORDERED: Pantoprazole Inj 40 MG Vial IV.PUSH SCH (06:00)
[2017-12-29] MEDS ORDERED: amLODIPine 5 MG Tablet PO SCH (09:00)
[2017-12-29] MEDS: Insulin NovoLOG Aspart Correctional Sugar Inj SQ SCH ×4 (09:20→21:20)
[2017-12-29] MEDS: Propranolol 40 MG Tablet PO SCH (09:21)
[2017-12-29] MEDS: Famotidine 20 MG Tablet PO SCH (09:21)
[2017-12-29] MEDS: Sodium Chloride 0.9% 2 ML Flush BID IV.FLUSH SCH ×2 (09:22→21:20)
[2017-12-29 09:29] LABS: Calcium 9.2 mg/dL (8.5-10.1); Potassium 3.5 meq/L (3.5-5.1)
[2017-12-29] MEDS: Acetaminophen 325 MG Tablet PO PRN ×2 (10:26→15:06)
--- NOTE | 2017-12-29 11:12 | P.PN ---
Subjective Interval history: Follow-up on patient with lightheadedness. Patient seen and examined. Patient complains of mild headache at this time. She denies any vision changes, dizziness or lightheadedness. She states she has gone to and from the bed to the bathroom multiple times without any difficulties. She is concerned about her elevated blood pressure. She denies any nausea, vomiting or abdominal pain. She denies any chest pain or shortness of breath. She denies any urinary difficulties, constipation or diarrhea. She does admit to having an anxious personality and she wonders if that is contributing to her elevated blood pressure. She also is upset because it will be the 8 yr anniversary of her 's on the . Physical Exam Vital signs: Vital Signs 12/28/17 12:00 12/28/17 16:00 12/28/17 19:50 Temperature 97.9 F 97.1 F L Pulse Rate 64 65 78 Respiratory Rate 16 16 Blood Pressure 186/86 H 201/92 H Pulse Oximetry 97 95 12/28/17 20:00 12/29/17 00:00 12/29/17 00:05 Temperature 98.6 F 97.9 F Pulse Rate 80 72 66 Respiratory Rate 18 18 Blood Pressure 187/91 H 169/77 H Pulse Oximetry 94 L 95 12/29/17 04:00 12/29/17 08:00 12/29/17 09:00 Temperature 98.0 F 98.4 F Pulse Rate 75 Respiratory Rate 18 Blood Pressure 185/79 H Pulse Oximetry 95 Intake & Output 12/28/17 12/29/17 12/29/17 18:59 06:59 18:59 Intake Total 1580 / 1580 800 / 800 Balance 1580 / 1580 800 / 800 Weight 72.2 kg Intake: IV 1100 / 1100 800 / 800 NS Inj 1,000 ML @ 50 mls/hr IV. 1000 / 1000 800 / 800 CONT .Q20H [facility] Rx#:[id number] KCl 20 mEq Premix Inj 20 meq In 100 / 100 100 ml @ 50 mls/hr IV.SIG ONCE ONE Rx#:[id number] Oral 480 / 480 Other: # Voids 4 4 2 Date of Last Bowel Movement 12/28/17 # Bowel Movements 1 Narrative: GENERAL: WDWN female patient, INAD. Awake and alert. Appears comfortable. SKIN: Warm and dry. HEENT: Atraumatic. Normocephalic. Pupils equal and round. No scleral icterus. No injection or drainage. No nasal bleeding or discharge. Mucous membranes pink and moist. NECK: Trachea midline. Patient has right-sided carotid bruit. CARDIOVASCULAR: Regular rate and rhythm. RESPIRATORY: No accessory muscle use. Clear to auscultation. Breath sounds equal bilaterally. GASTROINTESTINAL: Abdomen soft, non-tender, nondistended. +BS. MUSCULOSKELETAL: Extremities without clubbing, cyanosis, or edema. No obvious deformities. NEUROLOGICAL: Awake and alert. No obvious cranial nerve deficits. Motor grossly within normal limits. Normal speech. Patient does have very slight weakness on the left compared to the right, 4 out of 5 strength on the left, 5 out of 5 on the right. Slight tremor on the left upper extremity. Which patient reports is at baseline. PSYCHIATRIC: Appropriate mood and affect; insight and judgment normal. Results - Labs CBC & Chem 7: 12/28/17 03:43 12/29/17 07:59 Laboratory Results - last 24 hr 12/28/17 12/28/17 12/28/17 11:37 17:51 21:55 Sodium Potassium Chloride Carbon Dioxide Anion Gap BUN Creatinine Estimated GFR POC Glucose 149 H 183 H 182 H Random Glucose Calcium 12/29/17 12/29/17 07:22 07:59 Sodium 142 Potassium 3.5 Chloride 104 Carbon Dioxide 28.0 Anion Gap 10 BUN 14 Creatinine 1.05 H Estimated GFR 50 L POC Glucose 160 H Random Glucose 154 H Calcium 9.2 - Imaging Impressions Head MRI 12/28/17 00:00 CONCLUSION: Noncontrast MRI of the brain is within normal limits for a patient this age. No bleed, infarct or other acute abnormality. Assessment and Plan - Plan 82-year-old female with diabetes, GERD, reported gastric ulcer, hypertension, reported history of stroke with residual left-sided weakness who presents with onset of lightheadedness upon standing up: Presyncope, likely related to dehydration and/or orthostatic hypotension Hx of previous CVA with residual left sided weakness CT head neg Carotid US without hemodynamically significant stenosis Brain MRI unremarkable Echo with EF 60-65% orthostatics neg -Neurology following, appreciate assistance -continuous cardiac monitoring -ASA daily -check B12 and TSH -fall precautions -PT/OT eval/recs Elevated troponins EKG with no acute changes Patient has no chest pain complaints Cardiology following, appreciate assistance. Trops flat overall. Plan for followup as outpatient, possible ischemic evaluation in the future. Hypertensive urgency BP 226/102 -Started on Norvasc 5mg but BP still up. DW Dr. Dias, will increase Norvasc to 10mg daily and add Lisinopril 10mg daily -continue on Inderal -monitor BP closely Nausea, vomiting, resolved at present suspect multifactorial. Could be secondary to lightheadedness versus atypical chest pain versus gastritis. -Continue on PPI, antiemetics. Diabetes mellitus, chronic -diabetic diet -continue on accuchek and ISS -resume on home medication Metformin but at lower dose History of gastric ulcer, on Pepcid at home GERD hx of esophageal stricture s/p dilation, reports difficulty with food occasionally getting stuck -last EGD approx 8yrs ago. Recommended she follow up with GI as outpatient for possible repeat EGD in the near future -change from IV to po Protonix Headache, suspect multifactorial 2/2 NTG and elevated BP -d/c NTG -Tylenol prn DVT prophylaxis -bilateral SCD/DIANA hose Code Status: Full Discussed Condition With: patient, nursing staff, Dr. Gonzalez, Dr. Dias Discharge Planning: Possible discharge tomorrow pending cardiology and neurology clearance
[2017-12-29] MEDS ORDERED: amLODIPine 5 MG Tablet PO ONE (12:50)
[2017-12-29] MEDS: Lisinopril 10 MG Tablet PO SCH (13:30)
--- NOTE | 2017-12-29 19:32 | P.PNNEU ---
Subjective Subjective Comments: no new neurologic sx. Denies light headedness or dizzyness Active Medications: Active Medications Acetaminophen (Tylenol) 650 mg PO Q4H PRN PRN Reason: HEADACHE Last Admin: 12/29/17 15:06 Dose: 650 mg Al Hydroxide/Mg Hydroxide (Milk Of Magnesia Liq) 30 ml PO Q12H PRN PRN Reason: Mild Constipation Amlodipine Besylate (Norvasc) 10 mg PO DAILY [facility] Aspirin (Aspirin Chew) 81 mg PO DAILY [facility] Last Admin: 12/29/17 09:20 Dose: 81 mg Bisacodyl (Dulcolax Supp) 10 mg RECTAL DAILY PRN PRN Reason: SEVERE CONSITIPATION Calcium Carbonate (Tums Chew) 500 mg CHEW Q2H PRN PRN Reason: REFLUX Last Admin: 12/28/17 04:00 Dose: 500 mg Dextrose (D50w Vial) 50 ml IV.PUSH UNSCH PRN PRN Reason: PER HYPOGLYCEMIA PROTOCOL Enalaprilat (Vasotec Inj) 1.25 mg IV.PUSH Q6H PRN PRN Reason: SBP>200, DBP>100 Last Admin: 12/28/17 15:48 Dose: 1.25 mg Famotidine (Pepcid) 40 mg PO DAILY [facility] Last Admin: 12/29/17 09:21 Dose: 40 mg Glucagon (Glucagon Inj) 1 mg OTHER PRN PRN PRN Reason: for Hypoglycemia Protocol Insulin Aspart (Novolog Insulin Correctional Sugar Inj) 0 unit SQ [facility]; Protocol Last Admin: 12/29/17 17:19 Dose: Not Given Lactulose (Lactulose Liq) 30 ml PO DAILY PRN PRN Reason: SEVERE CONSITIPATION Lisinopril (Prinivil) 10 mg PO DAILY [facility] Last Admin: 12/29/17 13:30 Dose: 10 mg Metformin HCl (Glucophage) 500 mg PO BID@0900,1800 [facility] Last Admin: 12/29/17 18:04 Dose: 500 mg Pantoprazole Sodium (Protonix) 40 mg PO DAILY [facility] Propranolol HCl (Inderal) 40 mg PO DAILY [facility] Last Admin: 12/29/17 09:21 Dose: 40 mg Sennosides (Senokot) 17.2 mg PO Q12H PRN PRN Reason: Moderate Constipation Sodium Chloride (Ns Flush) 2 ml IV.FLUSH BID [facility] Last Admin: 12/29/17 09:22 Dose: Not Given Sodium Chloride (Ns Flush) 2 ml IV.FLUSH PRN PRN PRN Reason: FLUSH AFTER USING IV ACCESS Allergies/Adverse Reactions: Allergies Allergy/AdvReac Type Severity Reaction Status Date / Time No Known Allergies Allergy Verified 12/27/17 21:23 Physical Exam Vital signs: Vital Signs 12/28/17 19:50 12/28/17 20:00 12/29/17 00:00 Temperature 98.6 F 97.9 F Pulse Rate 78 80 72 Respiratory Rate 18 18 Blood Pressure 187/91 H 169/77 H Pulse Oximetry 94 L 95 12/29/17 00:05 12/29/17 04:00 12/29/17 08:00 Temperature 98.0 F 98.4 F Pulse Rate 66 Respiratory Rate 18 Blood Pressure 185/79 H Pulse Oximetry 95 12/29/17 09:00 12/29/17 12:00 12/29/17 16:00 Temperature 98.5 F 98.3 F Pulse Rate 75 73 70 Respiratory Rate 20 20 Blood Pressure 173/78 H 170/80 H Pulse Oximetry 95 96 Intake & Output 12/29/17 12/29/17 12/30/17 06:59 18:59 06:59 Intake Total 800 / 800 Balance 800 / 800 Weight 72.2 kg Intake: IV 800 / 800 NS Inj 1,000 ML @ 50 mls/hr IV. 800 / 800 CONT .Q20H [facility] Rx#:[id number] Other: # Voids 4 1 - Routine Neurological Exam alert, oriented, speech normal CN 2-12 normal MOTOR 5/5 BUE and BLE Objective Radiology Results: MRI brain normal Laboratory Results - last 24 hr 12/28/17 12/29/17 12/29/17 21:55 07:22 07:59 Sodium 142 Potassium 3.5 Chloride 104 Carbon Dioxide 28.0 Anion Gap 10 BUN 14 Creatinine 1.05 H Estimated GFR 50 L POC Glucose 182 H 160 H Random Glucose 154 H Calcium 9.2 Vitamin B12 TSH 12/29/17 12/29/17 12/29/17 07:59 07:59 11:54 Sodium Potassium Chloride Carbon Dioxide Anion Gap BUN Creatinine Estimated GFR POC Glucose 263 H Random Glucose Calcium Vitamin B12 1058 H TSH 3.670 12/29/17 16:56 Sodium Potassium Chloride Carbon Dioxide Anion Gap BUN Creatinine Estimated GFR POC Glucose 127 H Random Glucose Calcium Vitamin B12 TSH Review/Management - Diagnosis (1) Near syncope Code(s): R55 - Syncope and collapse Status: Acute Current Visit: Yes - Review/Management Plan: near syncope most likely related to diarrhea/dehydration. No evidence for cva on mri
--- NOTE | 2017-12-30 01:26 | P.PNCA ---
Subjective Interval history: No events overnight Feels well Blood pressure still elevated Medications and Allergies Active Medications: Active Medications Acetaminophen (Tylenol) 650 mg PO Q4H PRN PRN Reason: HEADACHE Last Admin: 12/29/17 15:06 Dose: 650 mg Al Hydroxide/Mg Hydroxide (Milk Of Magnesia Liq) 30 ml PO Q12H PRN PRN Reason: Mild Constipation Amlodipine Besylate (Norvasc) 10 mg PO DAILY [facility] Aspirin (Aspirin Chew) 81 mg PO DAILY [facility] Last Admin: 12/29/17 09:20 Dose: 81 mg Bisacodyl (Dulcolax Supp) 10 mg RECTAL DAILY PRN PRN Reason: SEVERE CONSITIPATION Calcium Carbonate (Tums Chew) 500 mg CHEW Q2H PRN PRN Reason: REFLUX Last Admin: 12/28/17 04:00 Dose: 500 mg Dextrose (D50w Vial) 50 ml IV.PUSH UNSCH PRN PRN Reason: PER HYPOGLYCEMIA PROTOCOL Enalaprilat (Vasotec Inj) 1.25 mg IV.PUSH Q6H PRN PRN Reason: SBP>200, DBP>100 Last Admin: 12/28/17 15:48 Dose: 1.25 mg Famotidine (Pepcid) 40 mg PO DAILY [facility] Last Admin: 12/29/17 09:21 Dose: 40 mg Glucagon (Glucagon Inj) 1 mg OTHER PRN PRN PRN Reason: for Hypoglycemia Protocol Insulin Aspart (Novolog Insulin Correctional Sugar Inj) 0 unit SQ [facility]; Protocol Last Admin: 12/29/17 21:20 Dose: 100 unit Lactulose (Lactulose Liq) 30 ml PO DAILY PRN PRN Reason: SEVERE CONSITIPATION Lisinopril (Prinivil) 10 mg PO DAILY [facility] Last Admin: 12/29/17 13:30 Dose: 10 mg Metformin HCl (Glucophage) 500 mg PO BID@0900,1800 [facility] Last Admin: 12/29/17 18:04 Dose: 500 mg Pantoprazole Sodium (Protonix) 40 mg PO DAILY [facility] Propranolol HCl (Inderal) 40 mg PO DAILY [facility] Last Admin: 12/29/17 09:21 Dose: 40 mg Sennosides (Senokot) 17.2 mg PO Q12H PRN PRN Reason: Moderate Constipation Sodium Chloride (Ns Flush) 2 ml IV.FLUSH BID [facility] Last Admin: 12/29/17 21:20 Dose: 2 ml Sodium Chloride (Ns Flush) 2 ml IV.FLUSH PRN PRN PRN Reason: FLUSH AFTER USING IV ACCESS Allergies Allergy/AdvReac Type Severity Reaction Status Date / Time No Known Allergies Allergy Verified 12/27/17 21:23 Home Medications Medication Instructions Recorded Confirmed Type aspirin 81 mg PO DAILY 12/27/17 12/27/17 History cyanocobalamin (vitamin B-12) 1,000 mcg PO DAILY 12/27/17 12/27/17 History [B-12 DOTS] glipizide 5 mg PO DAILY 12/27/17 12/27/17 History lisinopril-hydrochlorothiazide 1 tab PO DAILY 12/27/17 12/27/17 History metformin 1,000 mg PO BID 12/27/17 12/27/17 History propranolol 40 mg PO DAILY 12/27/17 12/27/17 History ranitidine HCl 300 mg PO DAILY 12/27/17 12/27/17 History Physical Exam Vital signs: Vital Signs 12/29/17 04:00 12/29/17 08:00 12/29/17 09:00 Temperature 98.0 F 98.4 F Pulse Rate 75 Respiratory Rate 18 Blood Pressure 185/79 H Pulse Oximetry 95 12/29/17 12:00 12/29/17 16:00 12/29/17 20:00 Temperature 98.5 F 98.3 F 98.2 F Pulse Rate 73 70 84 Respiratory Rate 20 20 18 Blood Pressure 173/78 H 170/80 H 166/83 H Pulse Oximetry 95 96 95 12/30/17 00:00 Temperature 97.9 F Pulse Rate 73 Respiratory Rate 18 Blood Pressure 171/80 H Pulse Oximetry 96 Intake & Output 12/29/17 12/29/17 12/30/17 06:59 18:59 06:59 Intake Total 800 / 800 Balance 800 / 800 Weight 72.2 kg Intake: IV 800 / 800 NS Inj 1,000 ML @ 50 mls/hr IV. 800 / 800 CONT .Q20H [facility] Rx#:[id number] Other: # Voids 4 1 Narrative: GENERAL: WDWN female patient, INAD. Awake and alert. Appears comfortable. SKIN: Warm and dry. HEENT: Atraumatic. Normocephalic. Pupils equal and round. No scleral icterus. No injection or drainage. No nasal bleeding or discharge. Mucous membranes pink and moist. NECK: Trachea midline. Patient has right-sided carotid bruit. CARDIOVASCULAR: Regular rate and rhythm. RESPIRATORY: No accessory muscle use. Clear to auscultation. Breath sounds equal bilaterally. GASTROINTESTINAL: Abdomen soft, non-tender, nondistended. +BS. MUSCULOSKELETAL: Extremities without clubbing, cyanosis, or edema. No obvious deformities. NEUROLOGICAL: Awake and alert. No obvious cranial nerve deficits. Motor grossly within normal limits. Normal speech. Patient does have very slight weakness on the left compared to the right, 4 out of 5 strength on the left, 5 out of 5 on the right. Slight tremor on the left upper extremity. Which patient reports is at baseline. PSYCHIATRIC: Appropriate mood and affect; insight and judgment normal. Results 12/28/17 03:43 12/29/17 07:59 Cardiac Enzymes 12/28/17 12/28/17 Range/Units 03:43 09:24 AST 14 L (15-37) U/L Troponin I 0.14 H 0.12 H (0.02-0.05) ng/mL CBC 12/28/17 Range/Units 03:43 WBC 6.0 (4.0-11.0) th/mm3 RBC 3.77 L (4.00-5.30) mil/mm3 Hgb 11.0 L (11.6-15.3) gm/dL Hct 32.7 L (35.0-46.0) % Plt Count 240 (150-450) th/mm3 Neut # (Auto) 3.8 (1.8-7.7) th/mm3 Lymph # (Auto) 1.5 (1.0-4.8) th/mm3 Terrell # (Auto) 0.6 (0.0-0.9) th/mm3 Eos # (Auto) 0.1 (0.0-0.4) th/mm3 Baso # (Auto) 0.1 (0.0-0.2) th/mm3 Comprehensive Metabolic Panel 12/28/17 12/29/17 Range/Units 03:43 07:59 Sodium 143 142 (136-145) meq/L Potassium 3.3 L 3.5 (3.5-5.1) meq/L Chloride 104 104 (98-107) meq/L Carbon Dioxide 28.6 28.0 (21.0-32.0) meq/L BUN 17 14 (7-18) mg/dL Creatinine 0.99 1.05 H (0.50-1.00) mg/dL Calcium 8.7 9.2 (8.5-10.1) mg/dL AST 14 L (15-37) U/L ALT 15 (10-53) U/L Alkaline Phosphatase 73 (45-117) U/L Total Protein 6.5 D (6.4-8.2) g/dL Albumin 3.3 L (3.4-5.0) g/dL Intake and Output 12/29/17 12/29/17 12/30/17 14:59 22:59 06:59 Intake Total 800 / 800 Balance 800 / 800 Intake: IV 800 / 800 NS Inj 1,000 ML @ 50 mls/hr IV. 800 / 800 CONT .Q20H [facility] Rx#:[id number] Other: # Voids 2 1 - Imaging and Cardiology Imaging: Impressions Carotid Doppler Study 12/28/17 00:00 CONCLUSION: No hemodynamically significant stenosis in either carotid artery Head MRI 12/28/17 00:00 CONCLUSION: Noncontrast MRI of the brain is within normal limits for a patient this age. No bleed, infarct or other acute abnormality. Assessment and Plan - Assessment (1) Near syncope Code(s): R55 - Syncope and collapse Status: Acute (2) Elevated troponin Code(s): R74.8 - Abnormal levels of other serum enzymes Status: Acute (3) Hypertension Code(s): I10 - Essential (primary) hypertension Status: Acute - Plan 1) HTN urgency Increased Norvasc to 10mg Added Lisinopril 10mg 2) EF 60-65% 3) Elevated troponin Most likely Type 2 due to HTN urgency Discussed ischemic work up, would like to hold off and consider stress test outpt 4) Dizziness Most likely dehydration/orthostatic hypotension (3) Hypertension Qualifiers: Hypertension type: unspecified Qualified Code(s): I10 - Essential (primary) hypertension
--- NOTE | 2017-12-30 06:59 | P.PN ---
Subjective Interval history: Follow-up on patient with lightheadedness. Patient seen and examined. Patient continues to have elevated BP measurements. She denies any dizziness, headache , lightheadedness or vision changes. She denies any chest pain or dyspnea. She denies any N/V or abdominal pain. She says her BP normally runs around 140/ 70s at home. She says she is a very anxious person and her anxiety has been worse the past few weeks. She believes her increased anxiety may be contributing to her elevated BP. Physical Exam Vital signs: Vital Signs 12/29/17 08:00 12/29/17 09:00 12/29/17 12:00 Temperature 98.4 F 98.5 F Pulse Rate 75 73 Respiratory Rate 20 Blood Pressure 173/78 H Pulse Oximetry 95 12/29/17 16:00 12/29/17 20:00 12/30/17 00:00 Temperature 98.3 F 98.2 F 97.9 F Pulse Rate 70 84 73 Respiratory Rate 20 18 18 Blood Pressure 170/80 H 166/83 H 171/80 H Pulse Oximetry 96 95 96 12/30/17 04:00 12/30/17 04:43 Temperature 97.8 F Pulse Rate 73 79 Respiratory Rate 18 Blood Pressure 183/90 H Pulse Oximetry 95 Intake & Output 12/29/17 12/29/17 12/30/17 06:59 18:59 06:59 Intake Total 800 / 800 Balance 800 / 800 Weight 72.2 kg 72.2 kg Intake: IV 800 / 800 NS Inj 1,000 ML @ 50 mls/hr IV. 800 / 800 CONT .Q20H [facility] Rx#:[id number] Other: # Voids 4 1 5 Narrative: GENERAL: WDWN female patient, INAD. Awake and alert. Appears comfortable. SKIN: Warm and dry. HEENT: Atraumatic. Normocephalic. Pupils equal and round. No scleral icterus. No injection or drainage. No nasal bleeding or discharge. Mucous membranes pink and moist. NECK: Trachea midline. Patient has right-sided carotid bruit. CARDIOVASCULAR: Regular rate and rhythm. RESPIRATORY: No accessory muscle use. Clear to auscultation. Breath sounds equal bilaterally. GASTROINTESTINAL: Abdomen soft, non-tender, nondistended. +BS. MUSCULOSKELETAL: Extremities without clubbing, cyanosis, or edema. No obvious deformities. NEUROLOGICAL: Awake and alert. No obvious cranial nerve deficits. Normal speech. Able to move all extremities spontaneously. Patient does have very slight weakness on the left compared to the right, 4 out of 5 strength on the left, 5 out of 5 on the right. PSYCHIATRIC: Appropriate mood and affect; insight and judgment normal. Results - Labs CBC & Chem 7: 12/28/17 03:43 12/30/17 04:56 Laboratory Results - last 24 hr 12/29/17 12/29/17 12/29/17 07:22 07:59 07:59 Sodium 142 Potassium 3.5 Chloride 104 Carbon Dioxide 28.0 Anion Gap 10 BUN 14 Creatinine 1.05 H Estimated GFR 50 L POC Glucose 160 H Random Glucose 154 H Calcium 9.2 Vitamin B12 1058 H TSH 12/29/17 12/29/17 12/29/17 07:59 11:54 16:56 Sodium Potassium Chloride Carbon Dioxide Anion Gap BUN Creatinine Estimated GFR POC Glucose 263 H 127 H Random Glucose Calcium Vitamin B12 TSH 3.670 12/29/17 20:52 Sodium Potassium Chloride Carbon Dioxide Anion Gap BUN Creatinine Estimated GFR POC Glucose 173 H Random Glucose Calcium Vitamin B12 TSH Assessment and Plan - Plan 82-year-old female with diabetes, GERD, reported gastric ulcer, hypertension, reported history of stroke with residual left-sided weakness who presents with onset of lightheadedness upon standing up: Presyncope, likely related to dehydration and/or orthostatic hypotension Hx of previous CVA with residual left sided weakness CT head neg Carotid US without hemodynamically significant stenosis Brain MRI unremarkable Echo with EF 60-65% orthostatics neg -Neurology following, appreciate assistance -continuous cardiac monitoring -ASA daily -fall precautions -PT/OT eval/recs - home with [facility] PT/OT Elevated troponins EKG with no acute changes Patient has no chest pain complaints Cardiology following, appreciate assistance. Trops flat overall. Plan for followup as outpatient, possible ischemic evaluation in the future. Hypertensive urgency BP 226/102 -Started on Norvasc 5mg but BP still up. DW Dr. Dias, will increase Norvasc to 10mg daily and add Lisinopril 10mg daily. BP a little better but still not well controlled, running 170-180s/70/90s. Resume home dose of HCTZ and begin Hydralazine 25mg TID. Trial of Xanax for possible anxiety related elevated BP. -continue on Inderal -monitor BP closely MARGARETTE, mild -creatinine bumped up from 99 -> 1.05 -> 1.08 -continue to monitor, repeat BMP in am Nausea, vomiting, resolved at present suspect multifactorial. Could be secondary to lightheadedness versus atypical chest pain versus gastritis. -Continue on PPI, antiemetics. Diabetes mellitus, chronic -diabetic diet -continue on accuchek and ISS -resume on home medication Metformin but at lower dose History of gastric ulcer, on Pepcid at home GERD hx of esophageal stricture s/p dilation, reports difficulty with food occasionally getting stuck -last EGD approx 8yrs ago. Recommended she follow up with GI as outpatient for possible repeat EGD in the near future -changed from IV to po Protonix Headache, suspect multifactorial 2/2 NTG and elevated BP, resolved -d/c NTG -Tylenol prn Hypokalemia -po repletion ordered -repeat BMP in am to monitor response DVT prophylaxis -bilateral SCD/DIANA hose Code Status: Full Discussed Condition With: patient, nursing staff, Dr. Gonzalez Discharge Planning: Possible discharge tomorrow pending cardiology clearance and improvement in BP.
[2017-12-30 07:58] LABS: Calcium 8.5 mg/dL (8.5-10.1); Carbon Dioxide 26.6 meq/L (21.0-32.0); Potassium 3.2 meq/L (3.5-5.1)
[2017-12-30] MEDS: hydrALAZINE 25 MG Tablet PO SCH ×3 (09:20→18:03)
[2017-12-30] MEDS: amLODIPine 10 MG Tablet PO SCH (09:21)
[2017-12-30] MEDS: Famotidine 20 MG Tablet PO SCH (09:21)
[2017-12-30] MEDS: Lisinopril 10 MG Tablet PO SCH (09:22)
[2017-12-30] MEDS: Propranolol 40 MG Tablet PO SCH (09:29)
[2017-12-30] MEDS: Insulin NovoLOG Aspart Correctional Sugar Inj SQ SCH ×4 (09:30→21:33)
[2017-12-30] MEDS: Sodium Chloride 0.9% 2 ML Flush BID IV.FLUSH SCH ×2 (09:33→21:34)
[2017-12-30] MEDS ORDERED: ALPRAZolam 0.25 MG Tablet PO ONE (14:42)
--- NOTE | 2017-12-30 15:05 | P.DCO ---
- Diagnosis (1) Impaired activities of daily living Status: Acute (2) Weakness Status: Acute (3) Risk for falls Status: Acute - Physical Therapy Order: Evaluate and treat, Improve ambulation, Strength and gait training - Occupational Therapy Order: Evaluate and treat, Improve ADL, Gross motor coordination, Fine motor coordination - Home Health Nursing Order: Medical education, Signs/symptoms of disease process, Medication education-adverse effect, Nursing assessment with vital signs - Case Management Consult Yes - Certification I have seen patient Tamia Ruth on 12/30/17. My clinical findings support the need for the requested home health care services because: Limited mobility due to disease progression, Deconditioned with increased weakness, High risk of falls I certify that my clinical findings support that this patient is homebound because: Unsteady gait/balance, Unsafe to leave home unassisted, Unable to use public transportation
--- NOTE | 2017-12-30 19:38 | ECG ---
Date Performed: 12/29/2017 Time Performed: 18:27:44 PTAGE: 82 years EKG: Sinus rhythm NORMAL ECG PREVIOUS TRACING : 12/27/2017 21.21 Since the previous tracing, no significant change noted DOCTOR: Cory Brand Interpretating Date/Time 12/30/2017 19:37:06
--- NOTE | 2017-12-31 00:06 | P.PNCA ---
Subjective Interval history: No complaints Blood pressure elevated still Medications and Allergies Active Medications: Active Medications Acetaminophen (Tylenol) 650 mg PO Q4H PRN PRN Reason: HEADACHE Last Admin: 12/29/17 15:06 Dose: 650 mg Al Hydroxide/Mg Hydroxide (Milk Of Magnesia Liq) 30 ml PO Q12H PRN PRN Reason: Mild Constipation Amlodipine Besylate (Norvasc) 10 mg PO DAILY [facility] Last Admin: 12/30/17 09:21 Dose: 10 mg Aspirin (Aspirin Chew) 81 mg PO DAILY [facility] Last Admin: 12/30/17 09:19 Dose: 81 mg Bisacodyl (Dulcolax Supp) 10 mg RECTAL DAILY PRN PRN Reason: SEVERE CONSITIPATION Calcium Carbonate (Tums Chew) 500 mg CHEW Q2H PRN PRN Reason: REFLUX Last Admin: 12/28/17 04:00 Dose: 500 mg Dextrose (D50w Vial) 50 ml IV.PUSH UNSCH PRN PRN Reason: PER HYPOGLYCEMIA PROTOCOL Enalaprilat (Vasotec Inj) 1.25 mg IV.PUSH Q6H PRN PRN Reason: SBP>200, DBP>100 Last Admin: 12/28/17 15:48 Dose: 1.25 mg Famotidine (Pepcid) 40 mg PO DAILY [facility] Last Admin: 12/30/17 09:21 Dose: 40 mg Glucagon (Glucagon Inj) 1 mg OTHER PRN PRN PRN Reason: for Hypoglycemia Protocol Hydralazine HCl (Apresoline) 25 mg PO TID [facility] Last Admin: 12/30/17 18:03 Dose: 25 mg Hydrochlorothiazide (Microzide) 12.5 mg PO DAILY [facility] Last Admin: 12/30/17 09:26 Dose: 12.5 mg Insulin Aspart (Novolog Insulin [employer] Sugar Inj) 0 unit SQ [facility]; Protocol Last Admin: 12/30/17 21:33 Dose: Not Given Lactulose (Lactulose Liq) 30 ml PO DAILY PRN PRN Reason: SEVERE CONSITIPATION Lisinopril (Prinivil) 10 mg PO DAILY [facility] Last Admin: 12/30/17 09:22 Dose: 10 mg Metformin HCl (Glucophage) 500 mg PO BID@0900,1800 [facility] Last Admin: 12/30/17 18:03 Dose: 500 mg Pantoprazole Sodium (Protonix) 40 mg PO DAILY [facility] Last Admin: 11/07/18 09:20 Dose: 40 mg Propranolol HCl (Inderal) 40 mg PO DAILY [facility] Last Admin: 12/30/17 09:29 Dose: 40 mg Sennosides (Senokot) 17.2 mg PO Q12H PRN PRN Reason: Moderate Constipation Sodium Chloride (Ns Flush) 2 ml IV.FLUSH BID [facility] Last Admin: 12/30/17 21:34 Dose: 2 ml Sodium Chloride (Ns Flush) 2 ml IV.FLUSH PRN PRN PRN Reason: FLUSH AFTER USING IV ACCESS Allergies Allergy/AdvReac Type Severity Reaction Status Date / Time No Known Allergies Allergy Verified 12/27/17 21:23 Home Medications Medication Instructions Recorded Confirmed Type aspirin 81 mg PO DAILY 12/27/17 12/27/17 History cyanocobalamin (vitamin B-12) 1,000 mcg PO DAILY 12/27/17 12/27/17 History [B-12 DOTS] glipizide 5 mg PO DAILY 12/27/17 12/27/17 History lisinopril-hydrochlorothiazide 1 tab PO DAILY 12/27/17 12/27/17 History metformin 1,000 mg PO BID 12/27/17 12/27/17 History propranolol 40 mg PO DAILY 12/27/17 12/27/17 History ranitidine HCl 300 mg PO DAILY 12/27/17 12/27/17 History Physical Exam Vital signs: Vital Signs 12/30/17 04:00 12/30/17 04:43 12/30/17 08:00 Temperature 97.8 F 97.8 F Pulse Rate 73 79 83 Respiratory Rate 18 20 Blood Pressure 183/90 H 179/83 H Pulse Oximetry 95 99 12/30/17 09:00 12/30/17 12:00 12/30/17 16:00 Temperature 97.6 F 98.1 F Pulse Rate 82 70 95 H Respiratory Rate 20 18 Blood Pressure 173/72 H 120/76 Pulse Oximetry 96 97 12/30/17 20:00 Temperature 97.9 F Pulse Rate 75 Respiratory Rate 18 Blood Pressure 149/67 H Pulse Oximetry 95 Intake & Output 12/30/17 12/30/17 12/31/17 06:59 18:59 06:59 Weight 72.2 kg Other: # Voids 5 4 Date of Last Bowel Movement 12/30/17 # Bowel Movements 2 Narrative: GENERAL: WDWN female patient, INAD. Awake and alert. Appears comfortable. SKIN: Warm and dry. HEENT: Atraumatic. Normocephalic. Pupils equal and round. No scleral icterus. No injection or drainage. No nasal bleeding or discharge. Mucous membranes pink and moist. NECK: Trachea midline. Patient has right-sided carotid bruit. CARDIOVASCULAR: Regular rate and rhythm. RESPIRATORY: No accessory muscle use. Clear to auscultation. Breath sounds equal bilaterally. GASTROINTESTINAL: Abdomen soft, non-tender, nondistended. +BS. MUSCULOSKELETAL: Extremities without clubbing, cyanosis, or edema. No obvious deformities. NEUROLOGICAL: Awake and alert. No obvious cranial nerve deficits. Normal speech. Able to move all extremities spontaneously. Patient does have very slight weakness on the left compared to the right, 4 out of 5 strength on the left, 5 out of 5 on the right. PSYCHIATRIC: Appropriate mood and affect; insight and judgment normal. Results 12/28/17 03:43 12/30/17 04:56 Comprehensive Metabolic Panel 12/29/17 12/30/17 Range/Units 07:59 04:56 Sodium 142 140 (136-145) meq/L Potassium 3.5 3.2 L (3.5-5.1) meq/L Chloride 104 103 (98-107) meq/L Carbon Dioxide 28.0 26.6 (21.0-32.0) meq/L BUN 14 17 (7-18) mg/dL Creatinine 1.05 H 1.08 H (0.50-1.00) mg/dL Calcium 9.2 8.5 (8.5-10.1) mg/dL Intake and Output 12/30/17 12/30/17 12/31/17 14:59 22:59 06:59 Other: # Voids 4 Date of Last Bowel Movement 12/28/17 12/30/17 # Bowel Movements 2 Assessment and Plan - Assessment (1) Near syncope Code(s): R55 - Syncope and collapse Status: Acute (2) Elevated troponin Code(s): R74.8 - Abnormal levels of other serum enzymes Status: Acute (3) Hypertension Code(s): I10 - Essential (primary) hypertension Status: Acute - Plan 1) HTN urgency Norvasc 10mg Lisinopril 10mg HCTZ/Hydralazine added 2) EF 60-65% 3) Elevated troponin Most likely Type 2 due to HTN urgency Discussed ischemic work up, would like to hold off and consider stress test outpt 4) Dizziness Most likely dehydration/orthostatic hypotension 5) Possible discharge tomorrow (3) Hypertension Qualifiers: Hypertension type: unspecified Qualified Code(s): I10 - Essential (primary) hypertension
[2017-12-31 07:11] LABS: Calcium 8.7 mg/dL (8.5-10.1); Carbon Dioxide 25.8 meq/L (21.0-32.0); Potassium 3.3 meq/L (3.5-5.1)
[2017-12-31] MEDS ORDERED: Sodium Chlor 0.9% Inj 250 ML IV.SIG SCH (08:00)
[2017-12-31 08:08] VITALS: BP 130/63; PULSE 77; RESP 16; TEMP 97.7; O2SAT 95
[2017-12-31] MEDS: Famotidine 20 MG Tablet PO SCH (08:09)
[2017-12-31] MEDS: Propranolol 40 MG Tablet PO SCH (08:10)
[2017-12-31] MEDS: hydrALAZINE 25 MG Tablet PO SCH (08:10)
[2017-12-31] MEDS: Lisinopril 10 MG Tablet PO SCH (08:10)
[2017-12-31] MEDS: amLODIPine 10 MG Tablet PO SCH (08:10)
[2017-12-31] MEDS: Sodium Chloride 0.9% 2 ML Flush BID IV.FLUSH SCH (08:12)
[2017-12-31] MEDS: Insulin NovoLOG Aspart Correctional Sugar Inj SQ SCH (08:17)
[2017-12-31] MEDS ORDERED: Magnesium Oxide 400 MG Tablet PO ONE (09:37)
--- NOTE | 2017-12-31 10:05 | P.DS ---
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 She reports nausea, vomiting of clear emesis, nonbloody diarrhea, sweating over the past day. She also reports generalized weakness upon standing, worse on the left than on the right (note that patient reports some baseline left sided weakness). She denies any recent changes in medications. Patient update on day of discharge: Follow-up on patient with presyncopal episode. Patient seen and examined. Patient states she is feeling very good. He is open to be discharged home today. She denies any complaints of focal weakness, headache, lightheadedness, dizziness or vision changes. She denies any chest pain or shortness of breath. Blood pressure was excellent this morning at 130/63. DS: Diagnosis - Discharge Diagnosis (1) Elevated troponin Status: Acute (2) Hypertension Status: Acute (3) Near syncope Status: Acute (4) Impaired activities of daily living Status: Acute (5) Weakness Status: Acute (6) Risk for falls Status: Acute DS: Medications - Discharge Medications Prescriptions: amlodipine [Norvasc] 10 mg PO DAILY #30 tab hydralazine 25 mg PO TID #90 tab lisinopril 10 mg PO DAILY #30 tab pantoprazole 40 mg PO DAILY #30 tab DS: Summary Hospital Course: Patient was admitted with presyncopal episode felt likely related to dehydration and or orthostatic hypotension. Patient was seen in consultation by neurology. Workup was unremarkable including a carotid ultrasound which did not show any significant stenosis, unremarkable brain MRI and echocardiogram with EF of 60-65%. Patient was noted to have elevated troponins and hypertensive urgency with BP of 226/102. Patient was seen in consultation by cardiology. She was started on Norvasc 5 mg which was increased to 10 mg daily. BP remained elevated and responded well to the addition of lisinopril, hydrochlorothiazide and hydralazine. However, patient's kidney function began to trend up slowly. Her hydrochlorothiazide and metformin were placed on hold. Cardiology and the patient decided to proceed with possible ischemic workup as an outpatient. Patient improved clinically. Patient reached maximum benefit of her hospitalization. She was seen in consultation by PT and OT who recommended home health care at discharge. Case management assisted with discharge planning. Patient was cleared for discharge from cardiology and neurology standpoint. - Time Spent with Patient Total time spent providing and/or coordinating discharge services: Greater than 30 minutes Exam Vital signs: Vital Signs 12/30/17 12:00 12/30/17 16:00 12/30/17 20:00 Temperature 97.6 F 98.1 F 97.9 F Pulse Rate 70 95 H 82 Respiratory Rate 20 18 18 Blood Pressure 173/72 H 120/76 149/67 H Pulse Oximetry 96 97 95 12/30/17 23:54 12/31/17 00:00 12/31/17 03:58 Temperature 97.1 F L Pulse Rate 80 81 70 Respiratory Rate 18 Blood Pressure 153/70 H Pulse Oximetry 96 12/31/17 04:00 12/31/17 08:00 12/31/17 08:07 Temperature 97.9 F 97.7 F Pulse Rate 71 77 77 Respiratory Rate 18 16 Blood Pressure 146/72 H 130/63 Pulse Oximetry 99 95 Intake & Output 12/30/17 12/31/17 12/31/17 18:59 06:59 18:59 Weight 71.8 kg Other: # Voids 4 2 Date of Last Bowel Movement 12/30/17 # Bowel Movements 2 Narrative: GENERAL: WDWN female patient, INAD. Awake and alert. Appears comfortable. SKIN: Warm and dry. HEENT: Atraumatic. Normocephalic. Pupils equal and round. No scleral icterus. No injection or drainage. No nasal bleeding or discharge. Mucous membranes pink and moist.Patient has right-sided carotid bruit. CARDIOVASCULAR: Regular rate and rhythm. RESPIRATORY: No accessory muscle use. Clear to auscultation. Breath sounds equal bilaterally. GASTROINTESTINAL: Abdomen soft, non-tender, nondistended. +BS. MUSCULOSKELETAL: Extremities without clubbing, cyanosis, or edema. No obvious deformities. NEUROLOGICAL: Awake and alert. No obvious cranial nerve deficits. Normal speech. Able to move all extremities spontaneously. Patient does have very slight weakness on the left compared to the right, 4 out of 5 strength on the left, 5 out of 5 on the right. PSYCHIATRIC: Appropriate mood and affect; insight and judgment normal. Results Procedures completed during hospitalization: None Labs on day of discharge: Labs from last 24 hours 12/31/17 12/31/17 12/31/17 08:16 06:16 06:16 Sodium 140 Potassium 3.3 L Chloride 104 Carbon Dioxide 25.8 Anion Gap 10 BUN 26 H Creatinine 1.19 H Estimated GFR 44 L POC Glucose 169 H Random Glucose 160 H Calcium 8.7 Magnesium 1.4 L 12/30/17 12/30/17 12/30/17 21:32 17:07 11:53 Sodium Potassium Chloride Carbon Dioxide Anion Gap BUN Creatinine Estimated GFR POC Glucose 137 H 160 H 159 H Random Glucose Calcium Magnesium - Impressions ITS Impressions Head CT 12/27/17 21:40 CONCLUSION: Negative noncontrast head CT. . Chest X-Ray 12/27/17 21:41 CONCLUSION: Early or mild left base pneumonia suspected. Carotid Doppler Study 12/28/17 00:00 CONCLUSION: No hemodynamically significant stenosis in either carotid artery Head MRI 12/28/17 00:00 CONCLUSION: Noncontrast MRI of the brain is within normal limits for a patient this age. No bleed, infarct or other acute abnormality. Discharge Plan - Discharge Disposition Patient Disposition: /Home Health Service - Discharge Condition Condition: Stable - Discharge Order Discharge Orders: Discharge Order (Routine); Ordered 12/31/17 Ordered By: Phyllis Roldan - Discharge Details Anticipated Discharge Date: 12/29/17 Discharge Comment: Discharge pending cardiology clearance and UA results - Physicians Team Primary Care Provider: Nathanael Gonzalez Attending Provider: Kian Gonzalez Other Providers: Porfirio Dias DO ; Daniel Ferrera MD, PhD
[2017-12-31 21:21] LABS: Hemoglobin A1c 7.2 % (4.3-6.0)
== END 2017-12-31 10:16 | disposition home health service (06) ==
LOC: NEPC 21:14 → NEDA 23:30 → N05 12-28 01:15
PROVIDERS: ADMIT Hospitalist; ATTEND Hospitalist